=== PATIENT | male | born 1945 | race Hispanic/Latino ===

== ENCOUNTER → 2020-04-27 | Outpatient (CLI) | payer MEDICARE ==
[~2020-04-27] MED LIST: IOPAMIDOL 370 MG/ML 200 ML INFUS..BTL INJ ONE; SODIUM CHLORIDE 0.9% 50ML 50 ML ONE
[2020-04-27 15:27] LABS: BLOOD UREA NITROGEN 27 mg/dL (7-26); BUN/CREATININE RATIO 23 (6-25); CREATININE, SERUM 1.17 mg/dL (0.72-1.25); EST GLOMERULAR FILTRATION RATE > 60 ML/MIN (60-)
== END ==
LOC: CT 14:50
PROVIDERS: ATTEND Family Medicine
DX: R10.31 Right lower quadrant pain (principal); K56.609 Unspecified intestinal obstruction, unspecified as to partial versus complete obstruction
CPT/HCPCS: 36415; 74177; 82565; 84520; Q9967

== ENCOUNTER → 2021-04-11 | Outpatient (CLI) | payer MEDICARE | LOC: US 07:28 | PROVIDERS: ATTEND Family Medicine | DX: R10.9 Unspecified abdominal pain (principal) | CPT/HCPCS: 76700 ==